=== PATIENT | male | born 1950 | race Hispanic/Latino ===

== ENCOUNTER 2017-10-14 00:04 | Emergency (ER) | payer BC ==
[2017-10-14] MEDS ORDERED: Sodium Chloride 0.9% 1,000 ML IV ONE (01:05)
--- NOTE | 2017-10-14 01:05 | C.PDOC ---
History Of Present Illness Patient is a 67 y/o male with PMHx significant for peripheral arterial disease s /p bypass to both lower extremities, currently maintained on Plavix and Xarelto. Patient works at the [employer], states he stood up suddenly and felt lightheaded. Denies any chest pain, SOB, or room-spinning. States he felt as if he was going to pass out, then sat down for about 15 minutes and felt better. He then stood again with similar symptoms. No LOC. Denies any focal weakness, bruising, recent vomiting, diarrhea, or bright red blood per rectum. PMHx is also significant for laryngeal injury that occurred during surgery for arterial disease, subsequently patient lost ability to swallow and had gastrostomy placed. He denies recent weight loss. Time Seen by Provider: 10/14/17 00:58 Chief Complaint (Nursing): Dizziness/Lightheaded History Per: Patient History/Exam Limitations: no limitations Onset/Duration Of Symptoms: Hrs Current Symptoms Are (Timing): Better Activity At Onset Of Symptoms: Had Just Stood up Associated Symptoms Preceding Syncopal Episode: Worse With Standing Seizure Or Post-ictal Symptoms: None Possible Causative Factor(s): Lightheaded W/Standing Past Medical History Reviewed: Historical Data, Nursing Documentation, Vital Signs Vital Signs: Last Vital Signs Temp 97.6 F 10/14/17 00:07 Pulse 58 L 10/14/17 00:07 Resp 18 10/14/17 00:07 BP 159/86 H 10/14/17 00:07 Pulse Ox 97 10/14/17 01:34 - Medical History PMH: Deep Vein Thrombosis, Hypercholesterolemia, Hypothyroidism Denies: Chronic Kidney Disease Other PMH: Peripheral arterial disease Other Surgeries: Vascular surgery to both lower extremities, Gastrostomy placement Family History: States: No Known Family Hx - Social History Hx Tobacco Use: No Hx Alcohol Use: No Hx Substance Use: No - Immunization History Hx Tetanus Toxoid Vaccination: Yes Hx Influenza Vaccination: Yes Hx Pneumococcal Vaccination: Yes Review Of Systems Except As Marked, All Systems Reviewed And Found Negative. Constitutional: Negative for: Weight loss Cardiovascular: Positive for: Light Headedness Gastrointestinal: Negative for: Nausea, Vomiting, Diarrhea, Other (rectal bleeding) Neurological: Positive for: Other (Near syncope, no LOC). Negative for: Headache, Dizziness Physical Exam - Physical Exam Appears: Non-toxic, No Acute Distress Skin: Normal Color, Warm, Dry Head: Atraumatic, Normacephalic Eye(s): bilateral: Normal Inspection (conjunctiva pink), PERRL, EOMI Nose: Normal Neck: Normal ROM Chest: Symmetrical Cardiovascular: Rhythm Regular, Other (S1, S2 are wnl) Respiratory: Normal Breath Sounds, No Rales, No Rhonchi, No Wheezing Gastrointestinal/Abdominal: Bowel Sounds (active), Soft, No Tenderness, No Rebound, Other (Gastrostomy tube in place) Extremity: Bilateral: Normal Color And Temperature (with no clubbing, cyanosis, or edema), Normal ROM Pulses: Left Dorsalis Pedis: Normal, Right Dorsalis Pedis: Normal Neurological/Psych: Oriented x3, Normal Speech, Normal Cranial Nerves (2-12 intact), Normal Motor (strength is 5/5 throughout), No Other (focal deficits) ED Course And Treatment - Laboratory Results Result Diagrams: 10/14/17 01:22 10/14/17 01:22 ECG: Interpreted By Me, Viewed By In ECG Rhythm: Sinus Rhythm (at 61 bpm, no ectopy, no acute ST/T changes, with poor R wave progression at the anteroseptal leads) O2 Sat by Pulse Oximetry: 97 (RA) Pulse Ox Interpretation: Normal - Radiology CXR: Interpreted by Me, Viewed By In CXR Interpretation: Yes: No Acute Disease - CT Scan/US CT head Other Rad Studies (CT/US): Read By Radiologist, Radiology Report Reviewed CT/US Interpretation: FINDINGS: Brain: Cerebral and cerebellar volume loss. Patchy hypodensity is seen in the periventricular and. subcortical white matter. No hemorrhage. Ventricles: Unremarkable. No ventriculomegaly. Bones/ joints: Unremarkable. No acute fracture. Soft tissues: Unremarkable. Vasculature: Vascular calcifications. Sinuses: Left maxillary sinus mucus retention cyst and/or polyp. Mastoid air cells: Unremarkable. No mastoid effusion. Orbits: The globes are intact. Dense lenses bilaterally. Correlation with patient's ophthalmic history. is recommended. IMPRESSION: No evidence of an acute intracranial hemorrhage, midline shift or mass effect is identified. Thank you for allowing us to participate in the care of your patient. Dictated and Authenticated by: Shiv Clarke MD. 10/14/2017 2:34 AM Eastern Time ([place] & [place]) Medical Decision Making Medical Decision Making: Impression: Near syncope, r/o dehydration, anemia, occult blood loss, and arrhythmia Plan: --Routine labs --Chest x-ray --CT head --IV hydration --Will observe on monitor Labs reviewed: U tox negative. Troponin negative. RBC 4.0 CT is negative. CXR shows no acute cardiopulmonary disease. Patient informed of all diagnostic findings. Stable for d/c home. 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 Disposition Counseled Patient/Family Regarding: Studies Performed, Diagnosis, Need For Followup - Disposition Referrals: [facility] [Outside] Disposition: HOME/ ROUTINE Disposition Time: 03:03 Condition: STABLE Instructions: Near Fainting Forms: [facility] (Malay), Work Excuse Print Language: NEPALI - POA Present On Arrival: None - Clinical Impression Clinical Impression: Near syncope - Scribe Statement The provider has reviewed the documentation as recorded by the Scribe (Brittney Iraheta) Provider Attestation: All medical record entries made by the Scribe were at my direction and personally dictated by me. I have reviewed the chart and agree that the record accurately reflects my personal performance of the history, physical exam, medical decision making, and the department course for this patient. I have also personally directed, reviewed, and agree with the discharge instructions and disposition.
[2017-10-14] MEDS ORDERED: Sodium Chloride 0.9% 1,000 ML ONE (01:17)
[2017-10-14 01:27] LABS: BASO % 0.3 % (0.0-2.0); EOS # 0.2 K/uL (0.0-0.7); EOS % 4.8 % (0.0-4.0); HEMOGLOBIN 13.1 g/dL (12.0-18.0); LYMPH # 0.5 K/uL (1.0-4.3); MEAN CELL VOLUME 96.6 fL (80.0-94.0); MEAN CORPUSCULAR HEMOGLOBIN 32.9 pg (27.0-31.0); MONO # 0.5 K/uL (0.0-0.8); MONO % 12.1 % (0.0-10.0); NEUT # 2.7 K/uL (1.8-7.0); NEUT % 68.8 % (50.0-75.0); NRBC % 0.1 % (0.0-2.0); RED CELL DISTRIBUTION WIDTH 14.1 % (11.5-14.5); WHITE BLOOD COUNT 3.9 K/uL (4.8-10.8)
[2017-10-14 01:39] LABS: ALB/GLOB RATIO 1.3 (1.0-2.1); ALBUMIN 4.6 g/dL (3.5-5.0); ALT/SGPT 27 U/L (21-72); AST/SGOT 35 U/L (17-59); BLOOD UREA NITROGEN 15 mg/dL (9-20); CALCIUM 9.6 mg/dl (8.6-10.4); GFR AFRICAN-AMERICAN > 60; GFR NON-AFRICAN AMERICAN > 60
[2017-10-14 01:42] LABS: URINE BILIRUBIN NEGATIVE (NEGATIVE); URINE BLOOD NEGATIVE (NEGATIVE); URINE CLARITY Clear (Clear); URINE COLOR Yellow (YELLOW); URINE GLUCOSE (UA) NORMAL (Normal); URINE LEUKOCYTE ESTERASE NEG Leu/uL (Negative); URINE PROTEIN NEGATIVE (NEGATIVE); URINE UROBILINOGEN NORMAL mg/dL (0.2-1.0)
[2017-10-14 01:50] LABS: BARBITURATES, UR NEGATIVE (NEGATIVE); BENZODIAZEPINES, UR NEGATIVE (NEGATIVE); OPIATES, UR NEGATIVE (NEGATIVE); PHENCYCLIDINE, UR NEGATIVE (NEGATIVE)
--- NOTE | 2017-10-14 02:34 | CT ---
EXAM: CT Head Without Intravenous Contrast CLINICAL HISTORY: 67 years old, male; Pain; Headache and other: Near syncope TECHNIQUE: Axial computed tomography images of the head/brain without intravenous contrast. All CT scans at this facility use one or more dose reduction techniques, viz.: automated exposure control; ma/kV adjustment per patient size (including targeted exams where dose is matched to indication; i.e. head); or iterative reconstruction technique. 394 images are submitted. Coronal and sagittal reformatted images were created and reviewed. Axial reformatted images were created and reviewed. COMPARISON: No relevant prior studies available. FINDINGS: Brain: Cerebral and cerebellar volume loss. Patchy hypodensity is seen in the periventricular and subcortical white matter. No hemorrhage. Ventricles: Unremarkable. No ventriculomegaly. Bones/joints: Unremarkable. No acute fracture. Soft tissues: Unremarkable. Vasculature: Vascular calcifications. Sinuses: Left maxillary sinus mucus retention cyst and/or polyp. Mastoid air cells: Unremarkable. No mastoid effusion. Orbits: The globes are intact. Dense lenses bilaterally. Correlation with patient's ophthalmic history is recommended. IMPRESSION: No evidence of an acute intracranial hemorrhage, midline shift or mass effect is identified.
[2017-10-14 03:16] VITALS: BP 134/78; PULSE 60; RESP 20; TEMP 98.2
[2017-10-14 04:16] VITALS: O2SAT 97
--- NOTE | 2017-10-14 08:29 | RAD ---
PROCEDURE: CHEST RADIOGRAPH, 1 VIEW HISTORY: chest pain COMPARISON: None available. FINDINGS: LUNGS: Biapical pleural-parenchymal scarring. Clear. PLEURA: No pneumothorax or pleural fluid seen. CARDIOVASCULAR: Atherosclerotic aortic calcifications. Cardiomediastinal silhouette prominent. OSSEOUS STRUCTURES: Degenerative changes. VISUALIZED UPPER ABDOMEN: Normal. OTHER FINDINGS: None. IMPRESSION: No active disease.
--- NOTE | 2017-10-15 12:53 | CARD ---
APPROVED REPORT EKG Measurement Heart [id number] <Conclusion> Normal sinus rhythm Possible Left atrial enlargement Septal infarct, age undetermined Abnormal ECG
== END 2017-10-14 03:47 | disposition home or self-care (01) ==
LOC: C.ER 00:04
DX: R55 Syncope and collapse (principal)
CPT/HCPCS: 70450; 71045; 80053; 81001; 82948; 83880; 84484; 85025; 85378; 93005; 96360; 99285; G0480; J7040